=== PATIENT | female | born 1990 | race Caucasian/White ===

== ENCOUNTER 2018-10-13 10:31 | Emergency (ER) | payer OTHER, SELFPAY ==
--- NOTE | 2018-10-13 11:40 | ULT ---
SONOGRAM RIGHT BREAST LIMITED: Date: 10/13/18 HISTORY: Right breast pain. Lump. FINDINGS: Evaluation of the superolateral aspect of the right breast shows dene fibroglandular tissue. An ill-d efined, poorly marginated area of asymmetric breast tissue measures up to 1.1 cm length x 0.5 cm dept h, with subtle posterior acoustic enhancement. No hypoechoic mass or shadowing are evident. This may represent a small focal area of inflammation. IMPRESSION: BI-RADS Category 2 - Benign findings. No aggressive lesions of the right breast are apparent. POS: [facility]
== END 2018-10-13 12:01 | disposition home or self-care (01) ==
LOC: ERS 10:31
DX: N63.0 Unspecified lump in unspecified breast (principal); F41.9 Anxiety disorder, unspecified; F90.9 Attention-deficit hyperactivity disorder, unspecified type; F17.210 Nicotine dependence, cigarettes, uncomplicated; Z79.899 Other long term (current) drug therapy